=== PATIENT | male | born 1965 | race Two or more races ===

== ENCOUNTER 2018-06-14 16:52 | Emergency (ER) | payer OTHER ==
[~2018-06-14] VITALS: Ht 180.3 cm; Wt 88.5 kg
[2018-06-14] MEDS ORDERED: ADVAIR 100-501 EACH IH (17:25)
[2018-06-14] MEDS ORDERED: COZAAR50 MG PO (17:25)
[2018-06-14] MEDS ORDERED: PROVENTIL HFA6.7 GM (17:25)
== END 2018-06-14 22:20 | disposition home or self-care (01) ==
LOC: ER 16:52
DX: J09.X2 Influenza due to identified novel influenza A virus with other respiratory manifestations (principal)

== ENCOUNTER → 2020-09-14 13:40 | Outpatient (CLI) | payer OTHER ==
[~2020-09-14 13:40] MED LIST: ADVAIR 100-501 EACH IH; COZAAR50 MG PO; PROVENTIL HFA6.7 GM
== END | disposition home or self-care (01) ==
LOC: LAB 13:40
PROVIDERS: ATTEND Emergency Medicine Pediatric Emergency Medicine
DX: Z03.818 Encounter for observation for suspected exposure to other biological agents ruled out (principal)

== ENCOUNTER 2020-09-21 09:17 | Outpatient (CLI) | payer OTHER | END 2020-09-21 11:11 | disposition home or self-care (01) | LOC: LAB 09:17 | DX: Z03.818 Encounter for observation for suspected exposure to other biological agents ruled out (principal) ==

== ENCOUNTER 2020-09-22 08:25 | Outpatient (CLI) | payer OTHER | END 2020-09-22 18:00 | disposition home or self-care (01) | LOC: LAB 08:25 | DX: U07.1 COVID-19 (principal) ==

== ENCOUNTER → 2021-01-18 07:12 | Outpatient (CLI) | payer OTHER | END | disposition home or self-care (01) | LOC: LAB 07:12 | PROVIDERS: ATTEND Emergency Medicine Pediatric Emergency Medicine | DX: Z03.818 Encounter for observation for suspected exposure to other biological agents ruled out (principal) ==

== ENCOUNTER → 2021-01-24 07:55 | Outpatient (CLI) | payer OTHER | END | disposition home or self-care (01) | LOC: LAB 07:55 | PROVIDERS: ATTEND Emergency Medicine Pediatric Emergency Medicine | DX: Z03.818 Encounter for observation for suspected exposure to other biological agents ruled out (principal) ==

== ENCOUNTER 2025-06-04 11:32 | Emergency (ER) | payer OTHER ==
[~2025-06-04] VITALS: Ht 180.3 cm; Wt 85.3 kg
[2025-06-04] MEDS ORDERED: 0.9 % SODIUM CHLORIDE 1,000 ML IV STA (12:29)
[2025-06-04] MEDS ORDERED: MORPHINE SULFATE 2 MG/ML SYRINGE IV STA (12:32)
[2025-06-04 13:18] LABS: URINE APPEARANCE Clear; URINE BILIRRUBIN Negative (NEGATIVE); URINE BLOOD Moderate; URINE COLOR Yellow; URINE GLUCOSE Negative (NEGATIVE); URINE KETONE Trace (NEGATIVE); URINE LEUKOCYTE Trace; URINE NITRATE Negative; URINE PROTEIN Trace (NEGATIVE); URINE UROBILINOGEN 1.0 E.U./dl
[2025-06-04 13:22] LABS: URINE BACTERIA 28.7 uL (0.0-1933); URINE CAST 4.25 uL (0.0-1.40); URINE EPITHELIAL CELLS 3.6 uL (0.0-38.8); URINE RBC 309.4 uL (0.0-20.8); URINE WBC 8.6 uL (0.0-23.2)
[2025-06-04 13:38] LABS: BASO % 0.5 % (0.1-1.2); EOS # 0.09 (0.04-0.54); EOS % 1.0 % (0.7-7.0); LYMPH # 1.09 (1.18-3.74); LYMPH % 11.6 % (19.3-53.1); MEAN PLATELET VOLUME 10.20 fl (9.4-12.4); MONO # 0.89 (0.24-0.82); MONO % 9.5 % (4.7-12.5); NEUT # 7.22 (1.56-6.13); NEUT % 77.2 % (34.0-71.1); RED CELL DISTRIBUTION WIDTH 12.8 % (11.6-14.4)
[2025-06-04 13:40] LABS: TYPE CELLS SQUAMOUS; URINE CRYSTALS FEW /HPF
[2025-06-04 13:41] LABS: URINE MUCUS SCANT
[2025-06-04 14:10] LABS: ALT/SGPT 23.0 U/L (12-78); AST/SGOT 15.0 U/L (15-37); BILIRUBIN TOTAL 1.23 mg/dL (0.3-1.2); BUN CREA RATIO 13.0 (7.0-25.0); CREATININE SERUM 1.17 mg/dL (0.70-1.30); GFR 63.59; GLOBULINA 3.8 G/DL (2.4-3.5); GLUCOSE FASTING 98.0 mg/dL (65-100); OSMOLALITY SERUM 282.0 MOSM/KG (275-295)
[2025-06-04 15:02] VITALS: BP 140/84; O2SAT 99
== END 2025-06-04 17:12 | disposition home or self-care (01) ==
LOC: ER 11:32
PROVIDERS: General Practice
DX: N20.0 Calculus of kidney (principal); R39.851 Costovertebral (angle) tenderness, right side; M54.50 Low back pain, unspecified